=== PATIENT | female | born 2000 | race Two or more races ===

== ENCOUNTER 2024-12-25 19:02 | Emergency (ER) | payer OTHER ==
[~2024-12-25] VITALS: Ht 165.1 cm; Wt 60.3 kg
[2024-12-25] MEDS ORDERED: SERTRALINE20 MG/1 ML (19:12)
[2024-12-25] MEDS ORDERED: BUPROPION XL150 MG (19:13)
[2024-12-25 20:23] LABS: BASO % 0.9 % (0.1-1.2); EOS # 0.13 (0.04-0.54); EOS % 2.4 % (0.7-7.0); LYMPH # 2.18 (1.18-3.74); LYMPH % 40.4 % (19.3-53.1); MEAN PLATELET VOLUME 9.80 fl (9.4-12.4); MONO # 0.36 (0.24-0.82); MONO % 6.7 % (4.7-12.5); NEUT # 2.66 (1.56-6.13); NEUT % 49.4 % (34.0-71.1); RED CELL DISTRIBUTION WIDTH 12.2 % (11.6-14.4)
[2024-12-25 20:53] LABS: ALT/SGPT 28.0 U/L (12-78); AST/SGOT 20.0 U/L (15-37); BILIRUBIN TOTAL 0.24 mg/dL (0.3-1.2); BUN CREA RATIO 16.0 (7.0-25.0); CREATININE SERUM 0.88 mg/dL (0.55-1.02); GFR 79.63; GLOBULINA 3.7 G/DL (2.4-3.5); GLUCOSE FASTING 106.0 mg/dL (65-100); OSMOLALITY SERUM 280.0 MOSM/KG (275-295)
[2024-12-25] MEDS ORDERED: KEPPRA500 MG PO (21:36)
== END 2024-12-25 21:51 | disposition home or self-care (01) ==
LOC: ER 20:09
PROVIDERS: General Practice
DX: G40.89 Other seizures (principal)